=== PATIENT | male | born 1940 | race Caucasian/White ===

== ENCOUNTER 2023-12-29 07:11 | Day surgery (SDC) | payer OTHER, SELFPAY ==
[2023-12-29] VITALS (12 sets, daily range): BP systolic 114–147; BP diastolic 68–80; BMI 32.1
[2023-12-29 07:55] LABS: Glucose - Point of Care 120 mg/dl (70-99)
[2023-12-29] MEDS: LOW STRENGTH ASPIRIN 81 MG PO (08:05)
--- NOTE | 2023-12-29 09:48 | ITS.CL.CATH ---
Machine I Engraver - Catheterization
Cardiac Catheterization
Procedure Report:
CARDIAC CATHETERIZATION REPORT
Date of Procedure: 12/29/2023
Referring: Fred Davenport MD
Indication: Symptomatic critical aortic stenosis
�
HEMODYNAMIC DATA
AO: 125/77
LV: Not done
�
LEFT VENTRICULOGRAPHY: Not done
�
CORONARY ANGIOGRAPHY
Dominance: Right
Left Main: Normal
LAD: 60-70% mid to distal LAD stenosis with otherwise mild luminal irregularities
Circumflex: Mild luminal irregularities
RCA: 30-40% stenosis in the distal RPDA otherwise mild luminal irregularities in a dominant RCA system
�
Closure Device: None-the procedure was performed via the right radial artery. The Abel's test was normal prior to the procedure.
�
Radiation (mGy): 358
DAP (cm2.Gy): 31
Fluoroscopy time: 2.5 minutes
�
CONCLUSIONS
1:�Symptomatic critical aortic stenosis noninvasively evaluated
2:�Single-vessel CAD as described-patient does not experience angina and based on ACTIVATION trial results, would not revascularize prior to TAVR. If he develops angina in the future, PCI of the LAD lesion would be a slam dunk. Continue ASA 81mg
daily intermediate and rosuvastatin to drive LDL below 70.
3. Continue evaluation for TAVR
�
�
Copy to: MD Danyel Gray MD
�
Aron Alcocer MD, [facility], [facility]
--- NOTE | 2023-12-29 11:36 | CONSULT.STRU ---
Consultation
-
Date/Time Consultation Requested: 12/29/2023
Date/Time Consultation Performed:
Requesting Provider: Dr. Aron Alcocer
Performing Provider: GENIE Magaña
Reason for Consultation: Aortic Stenosis/ TAVR evaluation
Patient History
Physicians
Family Physician: Danyel Aguirre
Outpatient Vice President Digital Strategist: Fred Davenport
Primary Vice President Digital Strategist: Fred Davenport
History of Present Illness
Patient is a very pleasant 83yo male who over the past year has noticed increasing fatigue and WAGNER. He had adjusted his activities and lifestyle thinking he was just 'getting old'. He denies chest pain, palpitations, PND, orthopnea or edema. He
follows with Dr. Fred Davenport and had an echocardiogram on 12/13/2023 that was notable for EF: 65-70%, Mild LVH, Grade 2 diastolic dysfunction, AV with PG/M/70, PHYLLIS: 0.8, Trace MT, Trivial TR. He underwent cardiac cath today that showed 60-70%
mid to distal LAD stenosis and 30-40% stenosis of the distal RPDA. He denies any anginal symptoms.
Reviewed the pathophysiology of aortic stenosis with the patient and his . Explained the treatment options of SAVR and TAVR. Explained the TAVR evaluation process including follow up BMP, CT TAVR scan, CT surgery consult and Heart Team
discussion. Provided with script for BMP next week, script and appointment for CT TAVR, Consult appointment with Dr. Martinez and a copy of the TAVR education booklet with contact information. Allowed for and answered questions.
Past Medical History
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
Past Surgical History
Past Surgical History: Orthopedic (bilateral TKR, R-THR) and Urological (TURP 2020)
Dental History
DIANN Perry
Family History
Mother: at Age
Father: at Age
Family Medical History: Cancer
Social History
Alcohol: Occasional
Drug: None
Tobacco: Former Smoker
Personal:
Living: With Spouse
Allergies
Allergy/AdvReac Type Severity Reaction Status Date / Time
No Known Allergies Allergy Verified 12/29/23 08:00
Home Medications
�Medication �Instructions �Recorded �Confirmed �Type
aspirin 81 mg chewable tablet 81 mg PO DAILY #1 tab 12/29/23 Rx
glipizide 5 mg tablet 5 mg PO DAILY 12/29/23 12/29/23 History
rosuvastatin 20 mg tablet 20 mg PO DAILY 12/29/23 12/29/23 History
tadalafil 5 mg tablet (Cialis) 5 mg PO DAILY 12/29/23 12/29/23 History
STS%
STS %: 1.44%
Review of Systems
-
History Source: Patient and Family
General: Reports Fatigue; Denies Weight Gain or Weight Loss
HEENT: Reports No Symptoms
Respiratory: Reports WAGNER (progressive over the past year); Denies Asthma or PND
Cardiac: Denies Chest Pain, Known Vascular Disease, Palpitations, Nausea or Edema
Abdomen/GI: Denies Abdominal Pain, Reflux, Nausea or Vomiting
: Reports Frequency and Nocturia; Denies Urgency or Hematuria
Musculoskeletal: Reports No Symptoms
Skin: Reports Other (easy bruising)
Neurological: Reports Dizzy; Denies CVA, TIA or Headaches
Vascular: Reports No Symptoms
Physical Exam
Vital Signs
Temp 97.9 F 12/29/23 07:39
Temp route: Oral 12/29/23 07:20
Pulse 57 12/29/23 11:05
Resp Rate 19 12/29/23 09:56
Blood pressure 119/68 12/29/23 11:05
Blood pressure extremity used: Left upper arm 12/29/23 11:11
Position: Sitting 12/29/23 11:11
MAP (cuff-Giacomo Monitor) 85 12/29/23 11:05
SaO2 93 12/29/23 11:05
Oxygen Mode of Delivery Room air 12/29/23 11:11
Can the patient verbally communicate their pain? Yes 12/29/23 11:11
Actual Weight 104.3 kg 12/29/23 07:30
Body Mass Index (BMI) 32.1 12/29/23 07:30
Labs
12/26/2023:
H/H: 14.1/42.1
Platelets: [id number]
WBC: 8.5
BUN/Creat: 16/0.91
GFR: 84
Diagnostic Studies
Echocardiogram 12/13/2023:
CONCLUSIONS
1. Left atrial enlargement
2. Mild left ventricular hypertrophy.
3. Severe aortic stenosis.
4. Normal left and right ventricular systolic function.
5. Grade 2 diastolic dysfunction.
6. Normal right ventricular systolic pressure
Indications:
Nonrheumatic aortic (valve) stenosis
Rhythm: Sinus
Portable Study:
Technical Quality: Technically difficult but
adequate for interpretation
Contrast: None
BP: 120 / 80
PROCEDURE
A complete Transthoracic Echocardiogram was performed utilizing two-dimensional
evaluation with color flow and spectral Doppler analysis.
FINDINGS
Left Ventricle
Normal left ventricular chamber size. Mild concentric left ventricular
hypertrophy. Normal left ventricular wall motion and systolic function. The
estimated left ventricular ejection fraction is 65 to 70%. Mitral inflow and
tissue Doppler are suggestive of a grade 2 diastolic filling abnormality.
Right Ventricle
Normal right ventricular chamber size. Normal right ventricular systolic
function.
Left Atrium
Mild left atrial enlargement.
Right Atrium
Normal right atrial size
Mitral Valve
Normal mitral valve. Trivial mitral regurgitation.
Aortic Valve
Thickened/calcified and deformed aortic valve that exhibits decreased opening.
There is a peak aortic valve gradient of 100 mmHg the mean gradient of 70 mmHg.
Aortic valve area is calculated at 0.8 cm2. The dimensionaless velocity index
is 0.2. These findings are suggestive of severe stenosis.
Tricuspid Valve
Normal tricuspid valve. Trivial tricuspid regurgitation with right ventricular
systolic pressure estimated at 23 mmHg
Pulmonic Valve
The pulmonic valve is poorly visualized. There is no obvious pulm efficiency.
Pericardium\\Pleura
No significant pericardial effusion.
Aorta
Normal aortic root.
Other Finding
Grossly intact interatrial septum.
Normal size inferior vena cava that exhibits normal respiratory variation. The
right atrial pressure is estimated at 3 mmHg.
MEASUREMENTS (Male / Female) Normal Values
2D ECHO
LV Diastolic Diameter PLAX 4.9 cm 4.2 - 5.9 / 3.9 - 5.3 cm
LV Systolic Diameter PLAX 3.1 cm
IVS Diastolic Thickness 1.0 cm 0.6 - 1.0 / 0.6 - 0.9 cm
LVPW Diastolic Thickness 1.0 cm 0.6 - 1.0 / 0.6 - 0.9 cm
LV Relative Wall Thickness 0.4
RV Internal Dim ED PLAX 3.0 cm
LVOT Diameter 2.0 cm
M-MODE
Aortic Root Diameter MM 3.2 cm
LA Systolic Diameter MM 3.8 cm
LA Ao Ratio MM 1.2
DOPPLER
AV Peak Velocity 498.8 cm/s
AV Peak Gradient 99.5 mmHg
AV Mean Gradient 70.2 mmHg
AV Velocity Time Integral 136.0 cm
LVOT Peak Velocity 121.8 cm/s
LVOT Peak Gradient 5.9 mmHg
LVOT Velocity Time Integral 27.1 cm
LVOT Stroke Volume 88.1 cm3
LVOT Stroke Volume Index 37.4 ml/m2 empty
LVOT Cardiac Index 1908.8 cm3/min
AV Area Cont Eq vti 0.6 cm2
AV Area Cont Eq pk 0.8 cm2
Mitral E Point Velocity 82.5 cm/s
Mitral A Point Velocity 89.0 cm/s
Mitral E to A Ratio 0.9
TR Peak Velocity 222.4 cm/s
TR Peak Gradient 19.8 mmHg
Right Ventricular Systolic Press 22.8 mmHg
Cardiac Catheterization 12/29/2023:
HEMODYNAMIC DATA
AO: 125/77
LV: Not done
�
LEFT VENTRICULOGRAPHY: Not done
�
CORONARY ANGIOGRAPHY
Dominance: Right
Left Main: Normal
LAD: 60-70% mid to distal LAD stenosis with otherwise mild luminal irregularities
Circumflex: Mild luminal irregularities
RCA: 30-40% stenosis in the distal RPDA otherwise mild luminal irregularities in a dominant RCA system
�
Closure Device: None-the procedure was performed via the right radial artery. The Abel's test was normal prior to the procedure.
�
Radiation (mGy): 358
DAP (cm2.Gy): 31
Fluoroscopy time: 2.5 minutes
�
CONCLUSIONS
1:�Symptomatic critical aortic stenosis noninvasively evaluated
2:�Single-vessel CAD as described-patient does not experience angina and based on ACTIVATION trial results, would not revascularize prior to TAVR. If he develops angina in the future, PCI of the LAD lesion would be a slam dunk. Continue ASA 81mg
daily [facility] and rosuvastatin to drive LDL below 70.
3. Continue evaluation for TAVR
Exam
General: Well Developed, Well Nourished, No Apparent Distress and Comfortable
HEENT: Normocephalic, Atraumatic, PERRLA and EOMI
Neck: Trachea Midline
Respiratory: Clear; Negative Wheezes, Crackles or Rhonchi
Cardiac: S1/S2, Regular Rhythm and Murmur (Grade II/ systolic murmur)
GI: Soft, Non Tender, Non Distended and Normal Bowel Sounds
Rectal: Deferred by Provider
Skin: Warm and Dry
Neuro: Awake, AO x 3 and No Motor Deficits
Extremities: Pulses (+2 DP pulses bilarteally); Negative Lower Level Edema
Psych: Calm
Assessment / Plan
-
Procedure Type:�Isolated AVR
PERIOPERATIVE OUTCOME ESTIMATE %
Operative Mortality 1.44%
Morbidity & Mortality 6.06%
Stroke 1.26%
Renal Failure 0.99%
Reoperation 2.73%
Prolonged Ventilation 2.84%
Deep Sternal Wound Infection 0.055%
Long Hospital Stay (>14 days) 3.19%
Short Hospital Stay (<6 days)* 51.8%
Severe Aortic stenosis:
����������� Continue evaluation for TAVR as outpatient
����������� BMP next week ([facility])
����������� CT TAVR scan 01/09/2024 at 0900 at
����������� CT surgery consult with Dr. Martinez 01/09/2024 at 10:00am
����������� Heart team discussion at [facility]
����������� Dental Clearance- receives regular dental care
Data Reviewed
-
EKG: Report Reviewed by me (first degree AV block, L-anterior fascicular block, right BBB)
Manager Study: Report Reviewed by me and Discussed with Physician
Echo: Report Reviewed by me and Discussed with Physician
Labs: Labs Reviewed by me
Old Records: Reviewed (cardiology notes)
Total Time Spent with Patient (in minutes): 30
== END 2023-12-29 12:19 | disposition home or self-care (01) ==
LOC: CATH 07:11
PROVIDERS: ATTENDING PHYSICIAN Internal Medicine Cardiovascular Disease; FAMILY PHYSICIAN Family Medicine; OTHER PHYSICIAN Internal Medicine Cardiovascular Disease
DX: I35.0 Nonrheumatic aortic (valve) stenosis (principal); I25.10 Atherosclerotic heart disease of native coronary artery without angina pectoris; E78.49 Other hyperlipidemia; E11.9 Type 2 diabetes mellitus without complications; Z85.51 Personal history of malignant neoplasm of bladder; Z87.891 Personal history of nicotine dependence; Z79.82 Long term (current) use of aspirin; Z79.84 Long term (current) use of oral hypoglycemic drugs
CPT/HCPCS: 82962; 93454; C1894; Q9967

== ENCOUNTER → 2024-01-09 08:57 | Outpatient (REF) | payer OTHER, SELFPAY | LOC: RAD 08:57 | PROVIDERS: ATTENDING PHYSICIAN Nurse Practitioner Adult Health; FAMILY PHYSICIAN Family Medicine | DX: I35.0 Nonrheumatic aortic (valve) stenosis (principal) | CPT/HCPCS: 74174; 75572; Q9967 ==

== ENCOUNTER 2024-02-01 05:29 | Inpatient (IN) | payer OTHER, SELFPAY ==
[2024-01-25 12:25] VITALS: BMI 31.9
[2024-01-25 13:14] LABS: % Basophils 0.2 % (0-2); % Eosinophils 0.1 % (0-6); % Immature Granulocytes 0.4 % (0-0.5); % Lymphocytes 11.8 % (20.5-51.1); % Monocytes 8.6 % (1.7-9.3); % Neutrophils 78.9 % (42.2-75.2); Absolute Immature Granulocytes 0.1 10^3/uL (0-0.05); Absolute Lymphocytes 1.9 10^3/uL (1.2-3.4); Absolute Monocytes 1.3 10^3/uL (0.1-0.6); Absolute Neutrophils 12.3 10^3/uL (1.4-6.5); Hematocrit 39.5 % (39.0-52.0); Hemoglobin 13.1 g/dL (13.0-18.0); Mean Corp Hgb Conc. 33.2 g/dL (33.0-37.0); Mean Corpuscular Volume 90.4 fL (80.0-94.0); Mean Platelet Volume 9.9 fL (7.4-10.4); Nucleated Red Blood Cells % 0 % (-); Platelet Count 217 10^3/uL (130-400); Red Blood Cell Count 4.37 10^6/uL (4.70-6.10); Red Cell Dist. Width 12.2 % (11.5-14.5); White Blood Cell Count 15.6 10^3/uL (4.8-10.8)
[2024-01-25 13:23] LABS: ALT (SGPT) 13 U/L (0-50); AST (SGOT) 22 U/L (17-59); Albumin 4.3 g/dl (3.5-5.0); Alkaline Phosphatase 50 U/L (38-126); Blood Urea Nitrogen 19 mg/dl (9-20); Calcium 9.2 mg/dl (8.4-10.2); Carbon Dioxide 26 mmol/L (22-30); Chloride 100 mmol/L (98-107); Direct Bilirubin 0.2 mg/dl (0.0-0.4); Estimated Creatinine Clearance 90 ml/min; Glucose 140 mg/dl (70-99); Potassium 4.2 mmol/L (3.5-5.1); Sodium 135 mmol/L (135-145); Total Bilirubin 0.7 mg/dl (0.2-1.3); Total Protein 7.1 g/dl (6.3-8.2); eGFR > 60.00
[2024-01-25 13:32] LABS: NT-proBNP 416 pg/ml
[2024-01-25 13:36] LABS: APTT 27.8 Sec (23.4-35.0); PT 14.7 Sec (11.4-14.6)
--- NOTE | 2024-01-25 13:42 | CM ---
Chart reviewed. Met with the patient and his in PAT. Reviewed preoperative and postoperative instructions and restrictions, along with showering guidelines. Gave patient 2 soaps. Patient is agreeable to a home visit by CT Transitional RN.
Patient is independent of ADLS, lives with his in a 2 SH, 1 DARYL, 0 DME. Plan is for the patient to go home with CT Transitional RN. CM to follow
[2024-01-25 14:11] LABS: Glycohemoglobin (HgbA1c) 6.4 % (4.0-5.6)
[2024-01-25 14:34] LABS: Urine Albumin Negative (Neg - Trace); Urine Bilirubin Negative (Negative); Urine Character Clear (Clear); Urine Color Yellow; Urine Glucose Trace (Negative); Urine Ketone Negative (Negative); Urine Leukocyte Negative (Negative); Urine Nitrite Negative (Negative); Urine Occult Blood Negative (Negative); Urine Urobilinogen Negative (Neg - 1+)
[2024-02-01] VITALS (32 sets, daily range): BP systolic 95–143; BP diastolic 58–81; BMI 29.0
--- NOTE | 2024-02-01 05:52 | W.CVOR.SURPR ---
CVOR Surgeon Immed Pre Op
-
I have examined this patient prior to performance of the scheduled procedure.
The patient's condition is unchanged from the time of the dictated/written History and
Physical and the patient is able to undergo the scheduled procedure.
TF TAVR
[2024-02-01] MEDS: ANCEF 10 IV ×2 (06:00→07:00)
--- NOTE | 2024-02-01 06:07 | PTCARENOTE ---
Pt. arrived to IVU at 0530. Pt. AOx3. Tele reading NSR. VS WNL. TAVR prep completed. Plan of care explained to pt. Pt. verbalizes understanding. Call sanford within reach. Continuing to monitor at this time.
[2024-02-01 06:47] LABS: Glucose - Point of Care 122 mg/dl (70-99)
--- NOTE | 2024-02-01 08:26 | CM ---
Reviewed chart. Mr. Reyes is in the operating room today. Prior to admission he resides with his spouse in a two story home without any steps to enter. Prior to admission he was independent with ambulation and adls. He caruso not have any DME in the
home. Medical work-up in progress. The discharge plan is to return home with his spouse and a home visit by the Transitional Care Nurse when medically stable.
[2024-02-01 08:41] LABS: ACT-LR - POC 131 Seconds (116-155)
[2024-02-01 08:57] LABS: ACT-LR - POC 282 Seconds (116-155)
--- NOTE | 2024-02-01 09:25 | ITS.CL.TAVR ---
Cement Gun Operator - TAVR Report
TAVR PRocedure
Procedure Report:
TRANSCATHETER AORTIC VALVE REPLACEMENT REPORT
Date of Procedure: 02/01/24
Referring: Dr. Fred Davenport MD
Indication: Severe aortic stenosis
Operators: Helio Meade MD, PhD (interventional cardiology); Kavon Sheppard MD (CT surgery)
Anesthesia: conscious sedation provided by the anesthesia staff
PROCEDURE: transfemoral, transcatheter aortic valve replacement with a Bliss Efren 3 Ultra #26 valve
ACCESS:
1. 6F left femoral vein (closure: manual hemostasis)
2. 6F left common femoral artery (closure: Angioseal)
3. 14F right common femoral artery (closure: Perclose x2)
PROCEDURE NARRATIVE:
The patient was prepped and draped in standard sterile fashion. Conscious sedation was provided by the anesthesia staff. 6F left femoral vein and left common femoral artery access was obtained with ultrasound guidance using micropuncture technique
with verification of appropriate arteriotomy location via hand injection angiography. There was difficulty getting the TVP to cross into the RA, so a Armstrong wire was used to gain access to the PA over which a 70 cm 6F sheath was used to gain
position in the RV, followed placement of the TVP. Appropriate capture was verified. A 5F pigtail catheter was advanced via the left common femoral artery and seated in the right coronary cusp. Angiography was performed to verify the co-planar
angle.
8F right common femoral artery access was obtained with ultrasound guidance using micropuncture technique with verification of appropriate arteriotomy location via hand injection angiography. The arteriotomy was preclosed with two Perclose sutures
followed by replacement of the 8F sheath. Using an AL1 catheter, an Amplatz Superstiff wire was placed in the descending thoracic aorta. The 8F sheath was removed and the 14F Bliss E-sheath was inserted over the Superstiff wire and into the
descending aorta. Heparin 8500 units was given. The AL1 catheter was re-advanced through the E-sheath to the level of the ascending aorta. The Superstiff wire was exchanged for a soft tipped straight wire. There was significant difficulty crossing
the aortic valve, with AL-1, AL-2, JR4, and AR-2 catheters used with both the straight wire and Glidewire without success. Further attempts with the AL-1 and straight wire eventually proved successful, and the AL1 was deposited in the LV apex. A
J-wire was used to exchange the AL1 for a pigtail catheter in the LV and LVEDP was measured. An Amplatz Extrastiff wire with curved proximal end was advanced through the pigtail catheter and seated in the LV apex. ACT was checked and confirmed to be
>250 seconds.
The valve was brought to the table with orientation and deployment contrast volume verified. The valve was advanced over the Extrastiff wire and into the descending aorta. The balloon was withdrawn, and the valve was mounted on the balloon. The
valve was advanced over the aortic arch and into the aortic valve annulus. The pusher device was withdrawn. Low volume aortography confirmed valve positioning. The valve was deployed during rapid ventricular pacing. The balloon was walked back to
the descending aorta while leaving the wire in place. The patient was resuscitated by anesthesia with recovery of adequate blood pressure. Telemetry demonstrating sinus rhythm with first-degree AV block. Aortography demonstrated good valve
positioning, adequate coronary filling, and no aortic valve insufficiency. Echocardiography confirmed no aortic insufficiency. Mean valve gradient was 9 mmHg. The valve deployment system was removed.
The Bliss E sheath was removed, and hemostasis obtained with the two Perclose sutures. Protamine 40 units was given. Aortoiliac angiography demonstrated no evidence of iliofemoral dissection/perforation and good runoff below the common femoral
artery bilaterally. The pacemaker and the pigtail catheter were removed. The left femoral artery sheath was removed using a 6F Angioseal. The left femoral venous sheath was removed with manual pressure.
RADIATION: dose 2049 mGy; DAP 180 Gy*cm2; fluoroscopy time 44.1 min
CONCLUSION: successful placement of Bliss Efren 3 Ultra 26 mm valve via right transfemoral approach with no acute complications
Copy to: Dr. Fred Davenport MD (dial equipment engineer); Dr. Danyel Zambrano DO (PCP)
Signed: Helio Meade MD, PhD
--- NOTE | 2024-02-01 09:41 | W.PN.CT.SURG ---
CT Surgery Operative Note
-
OPERATIVE REPORT
Preoperative Diagnosis: Severe aortic valve stenosis, symptomatic
Postoperative Diagnosis: Same
Procedure(s) Performed: Right trans femoral TAVR with a 26mm Prater TAVR valve
Date of Procedure: 02/01/24
Comorbidities:
1. Severe aortic stenosis, symptomatic
Cardiac Surgeon: Kavon Sheppard MD, MS
Security Guard Supervisor: Nishant Meade MD
Anesthesia: Conscious Sedation and Local Analgesia
EBL: 100cc
Products: none
Implant: 26mm PRATER Efren Valve, SN: [id number]
Indication(s) for Procedures: 83-year-old male with symptomatic severe aortic stenosis. CT-TAVR protocol revealed acceptable anatomy for TAVR access and implantation.
Start time: 0740hrs
Deployment time: 0902hrs
End time: 0922hrs
Radiation Dose (mGy): 2049.95
DAP (cm2.Gy): 180.21
Fluoroscopy time (minutes): 44.1
Contrast volume (ml): 85
TAVR gradient (mmHg): 9-10mmHg
Heparin Dose: 17,000units
Protamine Dose: 40mg
Final Valve Positionin/10
Findings: Preoperative LVEF was 65% and was 65-70% following TAVR without inotropic support. Function was overall normal without regional wall motion abnormalities or dyskinesia. The aortic valve was well seated without detectable PVL and mean
gradient across the new valve was 9-10mmHg. Following deployment, he did not require pacing and returned to sinus while on the lab engineer table. There was successful placement of 26mm nominal TAVR valve without acute complications. Of note, we had a
difficulty time crossing his valve, and took several catheters and different wires to accomplish this. Otherwise, no significant complications.
Access:
1. Device - R OFFICE SUPERVISOR, perclose x 2
2. Pigtail - L OFFICE SUPERVISOR + Angioseal, 6Fr
3. Transvenous Pacer - L CFV, via long sheath to deposite pacing wire in RA to RV
Description of Procedure: The patient was taken to the lab engineer. Their identity and procedure to be performed were verified and they were positioned supine on the lab engineer table. Induction via conscious sedation. The patient was then prepped and
draped from chin to thigh in a sterile fashion. A preoperative time-out was performed with all members of the team present. Arterial and venous access was performed using fluoroscopy and ultrasound guidance with micropuncture and Seldinger
technique. Two perclose devices were used on the device side followed by access to the aorta with a stiff wire to facilitate E-sheath placement. Heparin was given. A stiff straight wire and AL-1 catheter was used to cross the aortic valve. This
took several attempts with multiple exchanges of wires and catheters. The stiff wire was exchanged for an extra stiff coiled tip wire. The valve was prepped and mounted on to the device carrier. An ACT of >250 was achieved. We verified x 3 that the
valve was mounted in the correct orientation with the skirt of the valve directed toward the tip of the device carrier. We advanced the device into the descending thoracic aorta where the valve was them mounted onto the balloon under fluoroscopy.
The device was flexed and advanced over the arch into the root and positioned across the aortic valve. Contrast fluoroscopy was used to visualize the prosthesis across the valve and to guide positioning. A pigtail catheter in the RCC as used as a
guide. We aimed to have the bottom of the device marker at the annular hinge point. The device sheath was pulled back. We performed a quick pre-deployment time out. The pacer was turned on and had capture. Blood pressure fell accordingly,
angiography was done to verify the intended final placement and the valve was deployed with 5 seconds of rapid pacing to nominal volume. The balloon was deflated and the pacer was turned off. We had recovery of vitals. The device carrier was
unflexed and positioned back in the descending thoracic aorta. A transthoracic echocardiogram was performed. The device was removed from the E-Sheath maintaining wire access followed by removal of the E-sheath as we cinched down the perclose
devices. There was acceptable hemostasis. The pigtail was withdrawn into the descending/abdominal and completion aortogram with runoff run-off angiography was performed. There was no stenosis or dissection of bilateral iliofemoral systems. There was
acceptable hemostasis of bilateral groins and manual pressure was held following wire removal. Low dose protamine was administered after checking another ACT.
All instrument, sponge, and needle counts were confirmed to be correct x 2 at the end of the operation. The patient was transferred to the cardiac intensive care unit in stable condition.
I, Dr. Kavon Sheppard, was present, scrubbed for, and performed all critical elements of this procedure.
Kavon Sheppard MD
Cardiothoracic Surgeon
[facility]
This operative dictation was created using the [employer] dictation system. Please excuse any grammatical, typographical, or 'sound alike' errors
--- NOTE | 2024-02-01 09:48 | W.PN.UPDATE ---
Update Note
Progress Note Update
Reviewed Mr. Reyes with the heart team in the preTAVR SDM meeting and confirmed a 26 mm S3 via right transfemoral access. Patient will resume aspirin post TAVR. #26mm S3 (serial# [id number]) successfully deployed via right TF access. Post implant MG
10mmHg.
[2024-02-01] MEDS: LEVOPHED 250 IV (09:51)
[2024-02-01 10:28] LABS: Glucose - Point of Care 145 mg/dl (70-99)
--- NOTE | 2024-02-01 11:00 | PTCARENOTE ---
PT arrived to from TAVR procedure IVU 2x groins CDI no hematoma present soft non tender, Neuro exam benign, oriented x4 with no complaints of pain. post Op vitals and neuro checks WNL. see worklist for detailed assessment
--- NOTE | 2024-02-01 11:05 | ITS.CL.PN ---
Svp Monetization - Procedure Note
Procedure
Procedure Note:
CARDIAC CATHETERIZATION REPORT
Date of Procedure: 02/01/24
Referring: Dr. Dick Strong DO
Indication: Complete revascularization of non-culprit RCA stenosis following LCx STEMI
PROCEDURE(S)
1. left heart catheterization
2. PCI to the proximal RCA
3. IVUS of RCA
ACCESS: 6F right radial artery (closure: radial band)
CATHETER: 6F JR4 guide
HEMODYNAMIC DATA
LV 116/18 (EDP 20, A-wave 32) mmHg
AO 130/85 (mean 68) mmHg
PCI of RCA
Heparin was administered to achieve ACT greater than 300 seconds. The RCA was engaged with a 6 [place] JR4 guide catheter and a Runthrough wire placed in a proximal marginal branch for support followed by second Runthrough wire placed in the distal
RPDA. Initial lesion preparation was performed with a 2.0x12 balloon inflated serially to 10 mmHg with full expansion. A 6F Guideliner was inserted, facilitating delivery of a 3.0x22 mm [place] EMMETT that was deployed at 14 gail. There was a mild
waist in the mid stent. Postdilation was performed with a 3.0x12 mm NC balloon taken to 18 GAIL with resolution of the waist. IVUS was performed and demonstrated that the stent was mildly undersized with minimal calcification. Postdilation was
performed with a 3.5x12 mm NC balloon taken to 12 mmHg at the stent edges and 18 mmHg in the mid stent at the waist with full expansion. Final IVUS demonstrated excellent stent expansion apposition and no edge dissection. The midportion of the stent
where the waist had been demonstrated mild relative stent underexpansion but adequate MLA and stent diameter over 3 mm. The wire and guide were removed and a TR band placed. The patient was continued on aspirin and ticagrelor.
RADIATION: dose 747 mGy; DAP 44.9 Gy*cm2; fluoroscopy time 15.2 min
CONCLUSIONS
1. Successful IVUS-guided PCI to the proximal right coronary artery with placement of a 3.0x22 mm [place] EMMETT post-dilated to high-pressure with a 3.5 mm NC balloon
2. Postprocedure left heart cath demonstrated mildly elevated LV filling pressure and no significant gradient across the aortic valve
RECOMMENDATIONS
1. expectant management after cardiac catheterization via right radial approach
2. aggressive secondary prevention of coronary artery disease
3. DAPT with aspirin and ticagrelor for 1 year
Copy to: Dr. Billy Whitaker MD (PCP)
Signed: Helio Meade MD, PhD
[2024-02-01 12:02] LABS: ACT-LR - POC > 397 Seconds (116-155)
[2024-02-01] MEDS: TYLENOL 650 MG PO (15:06)
[2024-02-01] MEDS: LOW STRENGTH ASPIRIN 81 MG PO (15:06)
[2024-02-01] MEDS: ANCEF 5 IV (15:06)
--- NOTE | 2024-02-01 15:45 | PTCARENOTE ---
PT OOB to chair, vss bilateral groins WNL. see worklist for detailed assessment
--- NOTE | 2024-02-01 17:58 | PTCARENOTE ---
PT OOB indipendent in room, DC 02/01, see worklist for detailed assessment
--- NOTE | 2024-02-01 20:40 | PTCARENOTE ---
Received patient at change of shift. Resting in bed, but awoke to sound-- oriented x3. BP 115/67, SB w/ 1st degree block, BBB 50s, 97% on room air. Right groin little oozing from previous shift-- marked and stable. Little ecchymosis, but soft and no
hematoma. Left groin site clean, dry, and intact. Little ecchymosis, soft, no hematoma. Patient has begun ambulating and urinating on own. Discussed plan of care. Patient verbalized understanding. Call [facility] within reach.
[2024-02-01] MEDS: MAGNESIUM OXIDE 500 MG PO (21:13)
[2024-02-01] MEDS: DILAUDID 0.25 MG IV (23:19)
--- NOTE | 2024-02-01 23:43 | PTCARENOTE ---
Addendum entered by Anisha Zamora RN 02/02/24 04:58:
When getting morning vitals, patient informed RN the headache was completely gone
Addendum entered by Anisha Zamora RN 02/02/24 04:57:
Checked in with patient around 0100. Patient stated headache is there, but just slightly. 03/18
Addendum entered by Anisha Zamora RN 02/01/24 23:57:
Tali Jacob evaluated patient. Patient agreed to notify care team with any changes. Stated pain ~ 05/16 now.
Original Note:
Patient c/o of headache 10/16. Neuro check and vitals stable. Gave ice pack and Dilaudid for pain-- see MAR. 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
[2024-02-02] VITALS (7 sets, daily range): BP systolic 115–139; BP diastolic 57–76; PULSE 58; O2SAT 94–98; BMI 29.1
[2024-02-02 04:54] LABS: Hematocrit 38.9 % (39.0-52.0); Hemoglobin 12.7 g/dL (13.0-18.0); Mean Corp Hgb Conc. 32.6 g/dL (33.0-37.0); Mean Corpuscular Hgb 29.7 pg (27.0-31.0); Mean Corpuscular Volume 90.9 fL (80.0-94.0); Mean Platelet Volume 9.7 fL (7.4-10.4); Platelet Count 173 10^3/uL (130-400); Red Blood Cell Count 4.28 10^6/uL (4.70-6.10); Red Cell Dist. Width 12.5 % (11.5-14.5); White Blood Cell Count 10.9 10^3/uL (4.8-10.8)
[2024-02-02 05:16] LABS: Blood Urea Nitrogen 15 mg/dl (9-20); Calcium 8.7 mg/dl (8.4-10.2); Carbon Dioxide 28 mmol/L (22-30); Chloride 100 mmol/L (98-107); Estimated Creatinine Clearance 95 ml/min; Glucose 113 mg/dl (70-99); Potassium 4.3 mmol/L (3.5-5.1); Sodium 135 mmol/L (135-145); eGFR > 60.00
--- NOTE | 2024-02-02 06:39 | W.PN.CT ---
Today's Communication / Plan
-
-pod #1
-last night c/o throbbing CORONADO behind L eye, similar to his usual cluster CORONADO- improved with Dilaudid and ice. No focal deficits. Vision and speech intact, moves all extremities equally. CORONADO resolved.
-nsr 60s overnight. No damion or pauses
-pre-existing RBBB, LAFB, 1st degree AVB. ECG am is at baseline
-Echo today
-current meds (ASA, Crestor, Glucotrol, Mg)
-encourage IS, OOB, ambulate
Assessment / Plan
-
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
- Postop TTE: LVEF was 65% pre and 65-70% post TAVR without inotropic support, no regional wma or dyskinesia. The aortic valve was well seated without detectable PVL and mean gradient across the new valve was 9-10mmHg.
- HLD
- DM II (HgA1c 6.4)
- Cluster CORONADO
- Hx GI bleed 2021, requiring 4 pRBCs
- Ureteral sricture
- Bladder CA, s/p TURP 2020
- Knee and hip replacements
- Former smoker
- Pre-existing RBBB, LAFB, 1st degree AVB
Discussed patient care with: Nursing and Care Team
Subjective
-
Date of Service: February 02, 2024
Objective Data
-
PT 14.7 Sec (11.4-14.6) H 01/25/24 12:38
INR 1.10 01/25/24 12:38
APTT 27.8 Sec (23.4-35.0) 01/25/24 12:38
Vital Signs
Vital Signs
Temp Pulse Resp BP Pulse Ox
97.9 F 59 16 111/58 98
02/01/24 23:23 02/02/24 00:15 02/01/24 23:23 02/01/24 23:19 02/01/24 23:23
CT Intake/Output/Weight
02/01/24 02/01/24 02/02/24
06:59 18:59 06:59
Intake Total 1700 / 1700
Balance 1700 / 1700
SaO2: 98
Physical Exam
-
General: Awake and AOx3
Cardiovascular: Regular rate & rhythm, Murmur (soft / @ rsb) and No Rub
Respiratory: Clear
Incision: Other (groins are cdi, soft, nontender, no hematoma b/l)
Extremities: No Edema
Abdomen: soft, nontender, nondistended, + bowel sounds
Neuro: A&O x4, hard of hearing (wears hearing aids). c/o throbbing CORONADO behind L eye, similar to his usual cluster CORONADO- improved with Dilaudid and ice. No focal deficits. Vision and speech intact, moves all extremities equally.
Data Reviewed
-
Lab Results: Results Reviewed
Medications: Active Meds Reviewed
Chest X-Ray: Report Reviewed and Image Reviewed
ECG: Report Reviewed and Image Reviewed
--- NOTE | 2024-02-02 07:22 | W.DCSUMMARY ---
Documented by User: GENIE Elkins 02/02/24 10:47
Discharge Summary
Discharge Data
Date of Admission: 02/01/24
Date of Discharge: 02/02/24
-
Pending Results: No
Hospital Course
Primary care physician: Danyel Aguirre
Outpatient metallurgical analyst: Fred Davenport
Inpatient consultants: [facility]
Procedures:
1. TAVR
Primary Diagnosis:
1. Severe aortic stenosis
Secondary Diagnoses:
1. HLD
2. DM II (HgA1c 6.4) on oral agents
3. Cluster CORONADO
4. Hx GI bleed 2021, requiring 4 pRBCs
5. Ureteral stricture w/ acute urinary retention
6. Bladder CA, s/p TURP 2020
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
8. Pre-existing RBBB, LAFB, 1st degree AVB
HPI: 83-year-old male was electively admitted on 02/01/2024 for a TAVR
Hospital course: Patient underwent a right transfemoral TAVR #[address] REJI [address] Kavon Sheppard. Postprocedure TTE reported an EF of 60% and AV gradients of 21/10 mmHg, no AI. Patient required Levophed in the PACU which was quickly weaned off.
EKG reported sinus rhythm with first-degree AV block and bifascicular block which is unchanged from prior EKGs. Patient did require straight cath x 1 for 1100 cc of urine. Pre discharge TTE on 02/01 reported....
Home medication changes:
Discharge Plan
-
Patient Disposition: Home (Routine Discharge)
Discharge Diagnosis/Procedures: aortic stenosis/TAVR
Condition: Good
Diet: Diabetic, Carb Controlled
Activity: No strenuous activity
Driving Restrictions: Not until seen by your Dr
Bathing Restrictions: OK to Shower
Activity Restrictions/Additional Instructions:
Please call to make appointments for Phase II Cardiac Rehab:
#1) [facility] (10 min away)
[phone]
#2 [facility] (25 min away)
[phone]
Referrals:
CT Transitional Care Nurse [Outside] - in one to two days
(
The Cardiothoracic Transitional Care Nurse will call you to set up a visit in 1-2 days.)
Danyel Aguirre DO [Family Provider] - in four to six weeks (Please make an appointment in four to six weeks. )
Fred Davenport MD [Active] - 03/04/24 3:40 pm
Prescriptions:
New
acetaminophen 325 mg Tablet
650 mg PO Q4HPRN PRN (Reason: CORONADO, mild pain, or fever >101F) Qty: 0 0RF
Continued
oxycodone 5 mg Tablet
5 mg PO Q6H PRN (Reason: pain)
aspirin 81 mg tablet,chewable
81 mg PO DAILY Qty: 1 0RF
magnesium 250 mg Tablet
500 mg PO HS Qty: 0 0RF
glipizide 5 mg Tablet
5 mg PO DAILY Qty: 0 0RF
rosuvastatin 20 mg Tablet
20 mg PO DAILY Qty: 0 0RF
tadalafil [Cialis] 5 mg Tablet
5 mg PO DAILY Qty: 0 0RF
Discharge Orders:
Discharge Patient (As Directed); Ordered 02/02/24
Ordered By: Rama Lutz
Care Plan Goals
Care Plan Goals:
Problem: Readiness for enhanced knowledge related to diagnosis and treatment plan
Goal: Understand your diagnosis and treatment plan needs, including medications if applicable.
Instructions: Know your diagnosis, underlying causes and treatment plan options, including medications if applicable. Consult with your health care team to learn about your diagnosis and treatment plan, including medications if applicable.
Discharge Date and Time
Print Language: BAHAMIAN

Documented by User: Rama GENIE Lutz 02/02/24 13:07
Discharge Summary
Discharge Data
Date of Admission: 02/01/24
Date of Discharge: 02/02/24
Hospital Course
Primary care physician: Danyel Aguirre
Outpatient metallurgical analyst: Fred Davenport
Inpatient consultants: [facility] Card[facility]
Procedures:
1. TAVR
Primary Diagnosis:
1. Severe aortic stenosis
Secondary Diagnoses:
1. HLD
2. DM II (HgA1c 6.4) on oral agents
3. Cluster CORONADO
4. Hx GI bleed 2021, requiring 4 pRBCs
5. Ureteral stricture w/ acute urinary retention
6. Bladder CA, s/p TURP 2020
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
8. Pre-existing RBBB, LAFB, 1st degree AVB
HPI: 83-year-old male was electively admitted on 02/01/2024 for a TAVR
Hospital course: Patient underwent a right transfemoral TAVR #26 mm REJI [address] Kavon Sheppard. Postprocedure TTE reported an EF of 60% and AV gradients of 21/10 mmHg, no AI. Patient required Levophed in the PACU which was quickly weaned off.
EKG reported sinus rhythm with first-degree AV block and bifascicular block which is unchanged from prior EKGs. Patient did require straight cath x 1 for 1100 cc of urine. Pre discharge TTE on 02/01 reported LVEF is 60-65% and Peak/mean gradients
across the aortic valve are 34/16 mmHg. He was deem stable for discharge home.
Home medication changes:
see below
Discharge Plan
-
Patient Disposition: Home (Routine Discharge)
Discharge Diagnosis/Procedures: aortic stenosis/TAVR
Condition: Good
Diet: Diabetic, Carb Controlled
Activity: No strenuous activity
Driving Restrictions: Not until seen by your Dr
Bathing Restrictions: OK to Shower
Activity Restrictions/Additional Instructions:
Please call to make appointments for Phase II Cardiac Rehab:
#1) [facility] (10 min away)
[phone]
#2 [facility] (25 min away)
[phone]
Referrals:
CT Transitional Care Nurse [Outside] - in one to two days
(
The Cardiothoracic Transitional Care Nurse will call you to set up a visit in 1-2 days.)
Danyel Aguirre DO [Family Provider] - in four to six weeks (Please make an appointment in four to six weeks. )
Fred Davenport MD [Active] - 03/04/24 3:40 pm
Prescriptions:
New
acetaminophen 325 mg Tablet
650 mg PO Q4HPRN PRN (Reason: CORONADO, mild pain, or fever >101F) Qty: 0 0RF
Continued
oxycodone 5 mg Tablet
5 mg PO Q6H PRN (Reason: pain)
aspirin 81 mg tablet,chewable
81 mg PO DAILY Qty: 1 0RF
magnesium 250 mg Tablet
500 mg PO HS Qty: 0 0RF
glipizide 5 mg Tablet
5 mg PO DAILY Qty: 0 0RF
rosuvastatin 20 mg Tablet
20 mg PO DAILY Qty: 0 0RF
tadalafil [Cialis] 5 mg Tablet
5 mg PO DAILY Qty: 0 0RF
Discharge Orders:
Discharge Patient (As Directed); Ordered 02/02/24
Ordered By: Rama Lutz
Care Plan Goals
Care Plan Goals:
Problem: Readiness for enhanced knowledge related to diagnosis and treatment plan
Goal: Understand your diagnosis and treatment plan needs, including medications if applicable.
Instructions: Know your diagnosis, underlying causes and treatment plan options, including medications if applicable. Consult with your health care team to learn about your diagnosis and treatment plan, including medications if applicable.
Discharge Date and Time
Print Language: BAHAMIAN
--- NOTE | 2024-02-02 07:37 | W.PN.ANS.POP ---
Anesthesia Post Operative
- Anesthesia Post Op Note
Vital Signs Stable-See Nursing Note: Yes
Airway Patent: Yes
Adequate Pain Control: Yes
Change in Mental Status: No
Current Postoperative Nausea & Vomiting: No
Anesthesia Complications: No
General Anesthetic Recall: No
Unplanned Admission: No
Post Op Hydration Adequate: Yes
[2024-02-02] MEDS: LOW STRENGTH ASPIRIN 81 MG PO (09:07)
--- NOTE | 2024-02-02 09:16 | CM ---
Reviewed chart. Met with Mr. Reyes to review discharge plans. He states he is feeling well and maybe able to go home soon. He states prior to admission he resides with his spouse and 41 year old daughter in a two stor y home with one step to
enter. He states he has a full flight of steps to get to bedroom/full bathroom. He states he has a stair glide to get to the second floor. He states he has a stair glide and no other DME in the home. He states he has a prescription plan and uses
[facility]. He states his spouse will be home to assist in his care if needed. His daughter does work outside the home but she is home in the evening. We reviewed a home visit by the Transitional Care Nurse. He is agreeable to a home visit.
Medical work-up in progress. The discharge plan is to return home with his spouse and daughter with a home visit by the Transitional Care Nurse when medically stable.
--- NOTE | 2024-02-02 14:14 | W.PN.CD ---
Today's Communication / Plan
-
discharge home
Impression / Plan
-
Mr. Reyes is a 83 year old man with history of severe, symptomatic aortic stenosis, s/p right transfemoral Efren S3 Ultra 02/01/24 (Valarie Meade).
Today he is felling well without any chest pain or shortness of breath ambulating the halls. No bleeding at groin site.
EKG with RBBB, LAFB, 1st degree AVB (unchanged from prior)
Assessment:
- HLD
- DM II (HgA1c 6.4)
- RBBB, LAFB, 1st degree AVB
- severe aortic stenosis s/p TF TAVR
Plan:
- discharge today with standard follow up
- cont. asa/statin
TTE 02/02/24
Normal LV size and function with no regional wall motion abnormalities.
LVEF is 60-65% by visual estimation.
Moderate concentric LVH.
Normal right ventricular size and function.
S/p 26 mm Bliss transcatheter aortic valve replacement. Peak/mean gradients
across the aortic valve are 34/16 mmHg. Mild paravalvular aortic regurgitation.
Estimated pulmonary artery pressure of 23 mmHg. Assuming a right atrial
pressure of 3 mmHg.
Compared to prior from December 13, 2023, now status post 26 mm Bliss TAVR
valve.
Physical Exam
Vital Signs/Labs
Vital Signs
Temp Pulse Resp BP Pulse Ox
36.8 C 61 18 122/69 94
02/02/24 11:24 02/02/24 13:30 02/02/24 11:24 02/02/24 11:25 02/02/24 12:10
02/01/24 02/02/24 02/03/24
06:59 06:59 06:59
Actual Weight 102.5 kg 102.7 kg
02/02/24 04:34
02/02/24 04:34
PT 14.7 Sec (11.4-14.6) H 01/25/24 12:38
INR 1.10 01/25/24 12:38
APTT 27.8 Sec (23.4-35.0) 01/25/24 12:38
01/25/24
12:38
Wzf-F-[id number] Pept 416
Physical Exam
Constitutional: No acute distress
Cardiovascular: Rhythm & rate is regular
Respiratory: Respiratory effort normal
groin sites without hematoma
Data Reviewed
-
Date of Service: February 02, 2024
EKG: Tracing Personally Visualized and interpreted
Echo: Tracing Personally Visualized and interpreted
--- NOTE | 2024-02-02 15:30 | PTCARENOTE ---
Pt walking in halls, denies any discomfort , seen by . Telemetry and IV device removed. Discharge instructions reviewed with pt and his daughter regarding activity and driving restrictions, wound care, medications and their possible side
effects, reporting cares and concerns and follow up appt's. Very good understanding verbalized. Pt escorted out via wheelchair and discharged to home.
== END 2024-02-02 15:34 | disposition home or self-care (01) | DRG 267 ==
LOC: IVU 05:29
PROVIDERS: Nurse Practitioner; Student in an Organized Health Care Education/Training Program; ADMITTING PHYSICIAN Thoracic Surgery (Cardiothoracic Vascular Surgery); ATTENDING PHYSICIAN Thoracic Surgery (Cardiothoracic Vascular Surgery); CONSULT PHYSICIAN Internal Medicine; FAMILY PHYSICIAN Family Medicine; OTHER PHYSICIAN Internal Medicine Cardiovascular Disease
PROC: 02RF38Z Replacement of Aortic Valve with Zooplastic Tissue, Percutaneous Approach (ICD-10-PCS; 2024-02-01)
PROC: B41D1ZZ Fluoroscopy of Aorta and Bilateral Lower Extremity Arteries using Low Osmolar Contrast (ICD-10-PCS; 2024-02-01)
DX: I35.0 Nonrheumatic aortic (valve) stenosis (principal); I45.2 Bifascicular block; E78.5 Hyperlipidemia, unspecified; I44.0 Atrioventricular block, first degree; E11.9 Type 2 diabetes mellitus without complications; Z79.82 Long term (current) use of aspirin; Z79.84 Long term (current) use of oral hypoglycemic drugs; Z79.899 Other long term (current) drug therapy
CPT/HCPCS: 93308; 33361; 36415; 71045; 71046; 80048; 80053; 81003; 82248; 82962; 83036; 83880; 85025; 85027; 85347; 85610; 85730; 86850; 86900; 86901; 87070; 93005; 93306; 93321; 93325; C1760; C1769; C1894; Q9967

== ENCOUNTER → 2024-03-14 09:10 | Outpatient (REF) | payer OTHER, SELFPAY | LOC: RAD 09:10 | PROVIDERS: ATTENDING PHYSICIAN Student in an Organized Health Care Education/Training Program; FAMILY PHYSICIAN Family Medicine | DX: Z95.2 Presence of prosthetic heart valve (principal) | CPT/HCPCS: 75572; Q9967 ==

== ENCOUNTER 2024-03-20 06:45 | Day surgery (SDC) | payer OTHER, SELFPAY | END 2024-03-20 09:32 | disposition home or self-care (01) | LOC: CATH 06:45 | PROVIDERS: ATTENDING PHYSICIAN Internal Medicine; FAMILY PHYSICIAN Family Medicine; OTHER PHYSICIAN Internal Medicine Cardiovascular Disease | DX: I08.3 Combined rheumatic disorders of mitral, aortic and tricuspid valves (principal); Z95.2 Presence of prosthetic heart valve; E78.5 Hyperlipidemia, unspecified; E11.9 Type 2 diabetes mellitus without complications; Z85.51 Personal history of malignant neoplasm of bladder; Z87.891 Personal history of nicotine dependence; Z82.49 Family history of ischemic heart disease and other diseases of the circulatory system; Z79.84 Long term (current) use of oral hypoglycemic drugs | CPT/HCPCS: 93312; 93320; 93325 ==

== ENCOUNTER 2024-12-10 12:40 | Inpatient (IN) | payer OTHER, SELFPAY ==
[2024-12-10] VITALS (11 sets, daily range): BP systolic 101–141; BP diastolic 65–75; BMI 30.3; BMI 29.4
--- NOTE | 2024-12-10 08:08 | ED.GENMED ---
History of Present Illness
<GENIE Gaspar - Last Filed: 12/10/24 12:26>
General
Chief Complaint: Chest Pain
Source: patient
Exam Limitations: none
Time Seen by Provider: 12/10/24 08:07
Nursing documentation reviewed up to this point in time: agreed with
History of Present Illness
History of Present Illness:
Patient is a 83-year-old male with past medical history of aortic stenosis status post TAVR with bovine valve last year on baby aspirin only, diabetes GI bleed bladder cancer status post TURP new placement presents to the ER for evaluation. Patient
woke up this morning and had indigestion in the center of his chest. He reports he walked downstairs felt very sweaty and felt like he needed to move his bowels. He walked to the bathroom apparently while moving his bowels had a syncopal episode
in the bathroom. He woke up on the floor. Patient was given 4 baby aspirin EMS arrived.
Patient denies any indigestion or chest pain presently. He does feel very weak.
Phy Exam
<GENIE Gaspar - Last Filed: 12/10/24 12:26>
General Physical Exam
General Presentation: no apparent distress
General age: appears stated age
General Skin: warm and dry
General Habitus: normal
General Mental: alert
General Hydration: dry mucous membranes
Cardiovascular Exam
Cardiovascular Exam: regular rate/rhythm, no murmur and normal peripheral pulses
Pulmonary Exam
Pulmonary Exam: lungs clear and no respiratory distress
Neurological Exam
Neurological Exam: alert and oriented x3
Musculoskeletal Exam
Musculoskeletal Exam: full ROM
Skin Exam
Skin Exam: normal color and warm/dry
Psychiatric Exam
Psychiatric Exam: normal mood/affect
Scores
<GENIE Gaspar - Last Filed: 12/10/24 12:26>
Heart Score for Chest Pain Patients
STEMI patient?: Not applicable
Course
<GENIE Gaspar - Last Filed: 12/10/24 12:26>
Orders/Labs/Results
Orders:
Orders
12/10/24 08:02
Electrocardiogram (*1) Urgent
Reason for Study: Chest Pain
EKG- Treatment ONCE
12/10/24 08:19
CT Cervical Spine W/o Iv Contr Urgent
Comment:
Reason For Exam: trauma
CT Head W/o Iv Contrast Urgent
Comment:
Reason For Exam: trauma
Cardiac Monitoring- Treatment ONCE
IV Insert/Care/Rem.- Treatment PRN
0.9% Sodium Chloride 1000 ml [Nss] 1,000 ml IV BOLUS
CR Chest - 2 Views Urgent
Comment:
Reason For Exam: syncope/chest pain
12/10/24 08:23
Complete Blood Count/With Diff Urgent
Comprehensive Metabolic Panel Urgent
Troponin I Urgent
12/10/24 10:08
COVID-19 Antigen Urgent
Source: Nasal Swab
Influenza A+B Rapid Molecular Urgent
WILSON Source: Nasal Swab
Specimen Description:
12/10/24 10:46
Oseltamivir Phosphate [Tamiflu] 75 mg PO NOW STA
12/10/24 12:08
Troponin I Urgent
Abnormal Lab Results
12/10/24
08:23
RBC 4.26 L 10^6/uL
(4.70-6.10)
Hgb 12.7 L g/dL
(13.0-18.0)
Hct 38.5 L %
(39.0-52.0)
Absolute Monos (auto) 0.7 H 10^3/uL
(0.1-0.6)
Glucose 153 H mg/dl
(70-99)
12/10/24 08:23
12/10/24 08:23
Vital Signs
Initial and Last Documented VS:
Initial Vital Signs
Pulse Resp BP Pulse Ox
54 14 101/65 99
12/10/24 08:02 12/10/24 08:02 12/10/24 08:02 12/10/24 08:02
Last Documented Vital Signs
Temp Pulse Resp BP Pulse Ox
97.5 F 50 17 126/66 97
12/10/24 08:05 12/10/24 11:00 12/10/24 11:00 12/10/24 11:00 12/10/24 11:00
Animal Health Technician consulted with Physician
Animal Health Technician consulted with physician?: Yes
Name of Physician Consulted: Gopal
<Christiano Herron MD - Last Filed: 12/10/24 08:30>
Orders/Labs/Results
Orders:
Orders
12/10/24 08:02
Electrocardiogram (*1) Urgent
Reason for Study: Chest Pain
EKG- Treatment ONCE
12/10/24 08:19
CT Cervical Spine W/o Iv Contr Urgent
Comment:
Reason For Exam: trauma
CT Head W/o Iv Contrast Urgent
Comment:
Reason For Exam: trauma
Cardiac Monitoring- Treatment ONCE
IV Insert/Care/Rem.- Treatment PRN
0.9% Sodium Chloride 1000 ml [Nss] 1,000 ml IV BOLUS
CR Chest - 2 Views Urgent
Comment:
Reason For Exam: syncope/chest pain
12/10/24 08:23
Complete Blood Count/With Diff Urgent
Comprehensive Metabolic Panel Urgent
Troponin I Urgent
12/10/24 10:08
COVID-19 Antigen Urgent
Source: Nasal Swab
Influenza A+B Rapid Molecular Urgent
WILSON Source: Nasal Swab
Specimen Description:
12/10/24 10:46
Oseltamivir Phosphate [Tamiflu] 75 mg PO NOW STA
12/10/24 12:08
Troponin I Urgent
Abnormal Lab Results
12/10/24
08:23
RBC 4.26 L 10^6/uL
(4.70-6.10)
Hgb 12.7 L g/dL
(13.0-18.0)
Hct 38.5 L %
(39.0-52.0)
Absolute Monos (auto) 0.7 H 10^3/uL
(0.1-0.6)
Glucose 153 H mg/dl
(70-99)
12/10/24 08:23
12/10/24 08:23
Vital Signs
Initial and Last Documented VS:
Initial Vital Signs
Pulse Resp BP Pulse Ox
54 14 101/65 99
12/10/24 08:02 12/10/24 08:02 12/10/24 08:02 12/10/24 08:02
Last Documented Vital Signs
Temp Pulse Resp BP Pulse Ox
97.5 F 50 17 126/66 97
12/10/24 08:05 12/10/24 11:00 12/10/24 11:00 12/10/24 11:00 12/10/24 11:00
<GENIE Gaspar - Last Filed: 12/10/24 12:26>
MDM/Problems Addressed
Differential Diagnosis Includes:
Not limited to syncope ACS dehydration electrolyte abnormality reflux
MDM/Problems Addressed:
As documented patient is an 83-year-old female who had an episode of indigestion today walked down the steps and went to the bathroom and had a syncopal episode. EMS was called. Upon presentation patient felt very weak. He denies any recent fever
chills. Denies any associated chest pain. He was found to be flu positive. Patient was given fluids but continues to feel very weak would recommend admission and fluids. First dose of Tamiflu given here in the ER. CAT scan of head and neck
negative chest x-ray negative.
Chronic conditions affecting care:
TAVR ORIF. Discussed with patient for admission to 83-year-old male with past medical history of had an episode of indigestion diaphoresis and syncope in the bathroom. Patient presented awake and alert on arrival. Positive influenza. despite
fluids pt continues to feels weak . First dose she is of Tamifl ordered.
<GENIE Gaspar - Last Filed: 12/10/24 12:26>
*Radiology
Radiology exam reviewed: radiology read reviewed
*Pulse Oximetry
SaO2: 99
Oxygen Mode of Delivery: Room air
Patient hypoxic: no
*EKG
Interpreted by ED Provider?: Yes
Comparison EKG: no changes
Heart Rate: 52
Rate: bradycardiac
Rhythm: sinus
Ischemia: no ischemia
*Critical Care Note
Total Time (30-74mins, 75-104mins- exclusive of procedures): Not Applicable
ED Attending Note
<GENIE Gaspar - Last Filed: 12/10/24 12:26>
-
Portions of this chart may have been created with voice recognition software.� Occasional wrong word or��sound alike� substitutions may have occurred due to the inherent limitations of voice recognition software.
<Christiano Herron MD - Last Filed: 12/10/24 08:30>
ED Attending Note
Patient seen and examined by attending physician: Yes
ED Attending Note:
I have seen and evaluated the patient with a [id number] encounter. I have spoken to the advance practicer provider and involved in the medical history, the physical exam, medical decision making.
Evaluation and management service: agree unless noted differently below.
Results interpretation: agree unless noted differently below.
Focused HPI: 83-year-old male with history as noted significant for aortic stenosis status post AVR in January 2024 who presents to the emergency department for evaluation after episode of chest pain and syncope. Patient reports that he woke up
this morning and he felt the need to go to the bathroom. He says that he was having some chest discomfort that he initially thought was indigestion. He describes a vague 'burning' sensation substernal. He says he made his way to the bathroom but
became profoundly diaphoretic and very lightheaded requiring to stop and sit in the chair. He says that he felt that he was going to evacuate his stools imminently and made his way onto the toilet and ultimately passed out on the toilet. Says he
woke up on the ground in the bathroom and called out to his for EMS to bring her to the hospital. He states that he had persistent chest discomfort until shortly after EMS arrival. He reports associated nausea with this episode no vomiting.
He says he has some mild neck pain after the fall but no other serious injuries. He denies any other acute complaints. 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 Brush through [facility] but seen by Dr. Meade/Valarie for his AVR last year.
Physical exam: Awake and alert no distress. Vital signs all within acceptable range. No appreciable cardiac murmurs. Lungs sound clear. He has no signs of trauma to the head, no tenderness to the midline cervical spine, no tenderness of the
thoracic or lumbar spine or in the ribs. Abdomen nontender. Extremities atraumatic.
Medical Decision Makin-year-old male with history as noted presents for evaluation after episode of chest discomfort and syncopal episode. Currently chest pain-free. Vitals and exam are as above. EKG shows sinus rhythm. Plan to check labs
including a CBC and CMP, troponins. Check CT head and neck after fall off toilet with some mild neck pain. Will monitor closely on telemetry plan likely for admission for observation after this episode and cardiology consultation.
Discharge Plan
Departure
Patient Disposition: Admit
Date of Disposition: 12/10/24
Time of Disposition: 10:53
Admit to: Telemetry
Admit to doctor: hospitalist
Presentation/result/management discussed w/ accepting MD/DO: Hospitalist
Patient with high blood pressure during this ER visit?: No
Condition: Fair
Covid-19: Not Applicable
Discharge Problem:
Influenza, Syncope
Prescriptions:
No Action
glipizide 5 mg tablet
5 mg PO DAILY
rosuvastatin 20 mg tablet
20 mg PO QPM
tadalafil [Cialis] 5 mg tablet
5 mg PO DAILY
aspirin 81 mg Tablet,Delayed Release (Dr/Ec)
81 mg PO DAILY
docusate sodium [Colace] 100 mg Capsule
300 mg PO HSPRN PRN (Reason: CONSTIPATION)
castor oil 100 % Oil
10 ml PO DAILYPRN PRN (Reason: CONSTIPATION)
magnesium glycinate 100 mg Tablet
200 mg PO HS
Referrals:
Juan Roth DO [Family Provider]
Interventions
Interventions:
*Risk Screen - Suicide Last Done: 12/10/24 08:05
*General Assessment Last Done: 12/10/24 08:05
*Neglect/Abuse Screening Last Done: 12/10/24 08:05
*ED- Fall Risk Assessment Last Done: 12/10/24 11:16
*ED COVID-19 Vaccine History Last Done: 12/10/24 08:32
*ED Influenza Vaccine History Last Done: 12/10/24 08:32
ED- Cardiac Assessment Last Done: 12/10/24 08:33
Discharge Date and Time
Print Language: JAPANESE
[2024-12-10 08:37] LABS: Hematocrit 38.5 % (39.0-52.0); Hemoglobin 12.7 g/dL (13.0-18.0); Mean Corp Hgb Conc. 33.0 g/dL (33.0-37.0); Mean Corpuscular Volume 90.4 fL (80.0-94.0); Nucleated Red Blood Cells % 0 % (-); Platelet Count 172 10^3/uL (130-400); Red Cell Dist. Width 13.1 % (11.5-14.5)
[2024-12-10 09:00] LABS: ALT (SGPT) 14 U/L (0-50); AST (SGOT) 22 U/L (17-59); Albumin 3.8 g/dl (3.5-5.0); Alkaline Phosphatase 54 U/L (38-126); Blood Urea Nitrogen 13 mg/dl (9-20); Calcium 8.7 mg/dl (8.4-10.2); Carbon Dioxide 27 mmol/L (22-30); Chloride 103 mmol/L (98-107); Estimated Creatinine Clearance 82 ml/min; Glucose 153 mg/dl (70-99); Potassium 4.0 mmol/L (3.5-5.1); Sodium 138 mmol/L (135-145); Total Protein 6.7 g/dl (6.3-8.2); eGFR > 60.00
[2024-12-10 09:07] LABS: Troponin I 0.015 ng/ml
[2024-12-10] MEDS: NSS 1000 IV (10:16)
[2024-12-10 10:30] LABS: COVID-19 Antigen Negative (Negative)
[2024-12-10] MEDS: TAMIFLU 75 MG PO (12:13)
[2024-12-10 12:41] LABS: Troponin I 0.016 ng/ml
--- NOTE | 2024-12-10 14:34 | HPS.HSE ---
Family Physician
-
Family Physician: Juan Roth DO
Chief Complaint
-
Syncope
History of Present Illness
Juan Avery is a 83M w/ PMHx of severe s/p TAVR with bovine valve in 01/2024, T2DM, bladder CA s/p TURP, and chronic constipation who presented to the emergency department this morning after a syncopal episode. Patient woke up this morning in
his usual state of health and at 1 point in the day had a sensation of indigestion in the center of the chest. Patient states that he subsequently started develop some diaphoresis and felt like he needed to evacuate his bowels. He walked to the
bathroom and sat on the toilet, and apparently while moving his bowels had a syncopal episode in the bathroom. Patient states that he woke up on the floor and called EMS. Patient was given 4 baby aspirin en route to the hospital. Patient
states that this entire episode can be described in a word, 'weakness'.
In the emergency department, patient presented appearing fatigued, dry mucous membranes. Laboratory studies were largely unremarkable. Troponins were negative X2. EKG showed sinus bradycardia with first-degree AV block and right bundle branch
block. No change from 01/2024. CT of the cervical spine was negative. CT of the head was negative. CXR did not show any acute cardiopulmonary process. Patient did test positive for flu. He was started on oseltamivir and admitted for further
evaluation of syncope.
Medical History
Past Medical History
Past Medical History: Reports Other (severe s/p TAVR with bovine valve in 01/2024, T2DM, bladder CA s/p TURP, and chronic constipation)
Past Surgical History: Reports Cardiac, Orthopedic and Urological
Social History
Tobacco: Former Smoker
Alcohol: Occasional
Family History
Family History: Not pertinent
Allergies / Home Medications
Allergies reflects when Allergies were last updated in [facility].
Home Medications with original date entered in [facility]
Allergy/Medication List:
NKDA
ASA 81 mg daily
[place] oil 10 mL p.o. daily as needed
Docusate 300 mg p.o. as needed
Glipizide 5 mg p.o. daily
Magnesium glycinate 200 mg p.o. nightly
Rosuvastatin 20 mg p.o. every afternoon
Tadalafil 5 mg p.o. daily
Review of Systems
-
History Source: Patient
A 12 point ROS was completed and negative except as noted: Yes
Physical Exam
Vital Signs
Vital Signs
Temp Pulse Resp BP Pulse Ox
97.5 F 50 17 126/66 97
12/10/24 08:05 12/10/24 11:00 12/10/24 11:00 12/10/24 11:00 12/10/24 11:00
Physical Exam
General: No Apparent Distress, Comfortable and Conversant
HEENT: NormoCephalic and Anicteric
Respiratory: Clear and Non Labored Respirations
Cardiac: S1/S2 and Regular Rhythm
GI: Soft
Musculoskeletal: No Clubbing, No Cyanosis and No Edema
Skin: Warm
Neuro: Awake, Alert and Oriented
Psych: Calm
Laboratory Results
-
12/10/24 08:23
12/10/24 08:23
Laboratory Results
Total Bilirubin 0.8 mg/dl (0.2-1.3) 12/10/24 08:23
AST 22 U/L (17-59) 12/10/24 08:23
ALT 14 U/L (0-50) 12/10/24 08:23
Alkaline Phosphatase 54 U/L (38-126) 12/10/24 08:23
Troponin I 0.016 ng/ml 12/10/24 12:08
Data Reviewed
-
Diagnostic Radiology: Image Personally Visualized and interpreted, Report Reviewed by me and Discussed with Patient
CT Scan: Image Personally Visualized and interpreted, Report Reviewed by me and Discussed with Patient
Lab Data: Labs Reviewed by me and Discussed with Patient
Impression/Plan
-
83M w/ PMHx of severe s/p TAVR with bovine valve in 01/2024, T2DM, bladder CA s/p TURP, and chronic constipation who presented to the emergency department this morning after a syncopal episode who tested positive for flu, but had negative
laboratory and radiologic workup in the emergency departement, admitted for further evaluation of syncopal episode.
1. Syncopal Episode
- Subjective Improvement in fatigue since arrival
- Possibly in setting of fatigue secondary to influenza (see below)
- Low threshold for cardiology consult in the setting of TAVR
- S/p fluid bolus in ED, with subsequent subjective improvement in condition
- EKG without changes
- Admit to telemetry
- Orthostatic Vital Signs
2. Influenza
- Start Oseltamivir
- <24 hours since symptom onset
3. History of severe s/p TAVR
- Consider cardiology consult
- Continue ASA/Statin
4. History of T2DM
- Continue Glipizide
- Patient not hypoglycemic on arrival
- Follow daily sugars, may want to consider alternative medication
5. Hsitory of Chronic Constipation
- Bowel Regimen
CODE: DNR
Diet: Regular
DVT PPx: Lovenox
[2024-12-10] MEDS: GLUCOTROL 5 MG PO (17:15)
[2024-12-10] MEDS: LOVENOX 40 MG SC (17:15)
[2024-12-10] MEDS: CRESTOR 20 MG PO (17:15)
[2024-12-10] MEDS: MAGNESIUM OXIDE 200 MG PO (21:13)
[2024-12-11 03:41] VITALS: BP 102/61
[2024-12-11 08:00] VITALS: BP 121/58
[2024-12-11 08:05] LABS: Hematocrit 39.1 % (39.0-52.0); Hemoglobin 12.8 g/dL (13.0-18.0); Mean Corp Hgb Conc. 32.7 g/dL (33.0-37.0); Mean Corpuscular Volume 89.5 fL (80.0-94.0); Platelet Count 181 10^3/uL (130-400); Red Cell Dist. Width 13.0 % (11.5-14.5)
[2024-12-11] MEDS: ASPIR LOW (ENTERIC COATED) 81 MG PO (08:21)
[2024-12-11] MEDS: GLUCOTROL 5 MG PO (08:21)
[2024-12-11 09:03] LABS: Blood Urea Nitrogen 13 mg/dl (9-20); Calcium 8.7 mg/dl (8.4-10.2); Carbon Dioxide 30 mmol/L (22-30); Chloride 103 mmol/L (98-107); Estimated Creatinine Clearance 83 ml/min; Glucose 112 mg/dl (70-99); Potassium 4.7 mmol/L (3.5-5.1); Sodium 136 mmol/L (135-145); eGFR > 60.00
[2024-12-11 09:29] VITALS: BP 121/58; BP 123/67; BP 140/64; PULSE 56; PULSE 57; PULSE 63
--- NOTE | 2024-12-11 11:03 | W.PN.HOSP.TC ---
Today's Communication/Plan
-
Discharge home.
Assessment / Plan
Assessment / Plan
83M w/ PMHx of severe s/p TAVR with bovine valve in 01/2024, T2DM, bladder CA s/p TURP, and chronic constipation who presented to the emergency department this morning after a syncopal episode who tested positive for flu, but had negative
laboratory and radiologic workup in the emergency department, admitted for further evaluation of syncopal episode.
1. Vasovagal Episode
- Subjective Improvement in fatigue since arrival
- Feeling energetic today, no episodes of dizziness with ambulation or micturition
- Possibly in setting of fatigue secondary to influenza (see below)
- Follow up with outpatient poleyard supervisor in the setting of history of TAVR
- S/p fluid bolus in ED, with subsequent subjective improvement in condition
- EKG without changes
- Orthostatic Vital Signs negative
2. Influenza
- Continue Oseltamivir 75mg PO q12h through 12/14
- <24 hours since symptom onset
3. History of severe s/p TAVR
- Outpatient cardiology follow-up
- Continue ASA/Statin
4. History of T2DM
- Continue Glipizide
- Patient not hypoglycemic on arrival
- Follow daily sugars, may want to consider alternative medication
5. Hsitory of Chronic Constipation
- Bowel Regimen
CODE: DNR
Diet: Regular
DVT PPx: Lovenox
Anticipated Discharge: Today
Subjective/Interval History
-
Date of Service: December 11, 2024
Patient seen and examined while resting comfortably in bed.
Patient with no acute complaints today. States that he is feeling back to baseline, in fact feels very energetic.
He denies any chest pain, shortness of breath, dizziness, lower extremity swelling.
States that he has been up and walking to the bathroom without any dizziness upon standing.
Denies any dizziness when micturating, has not had a bowel movement yet today.
Endorses a mild nonproductive cough.
Objective Data
-
Labs:
Laboratory Results
12/11/24
07:43
WBC 9.2
Hgb 12.8 L
Hct 39.1
Plt Count 181
Sodium 136
Potassium 4.7
Chloride 103
Carbon Dioxide 30
BUN 13
Creatinine 0.8
Glucose 112 H
Calcium 8.7
Vital Signs:
Vital Signs
Temp Pulse Resp BP Pulse Ox
97.9 F 56 18 121/58 97
12/11/24 08:00 12/11/24 08:00 12/11/24 08:00 12/11/24 08:00 12/11/24 08:00
I&O
12/10/24 12/11/24 12/12/24
06:59 06:59 06:59
Intake Total 480 / 480
Balance 480 / 480
Review of Systems
-
History Source: Patient
All other systems: Reviewed and negative
Physical Exam
-
General: Well Developed, Well Nourished, No Apparent Distress and Conversant
HEENT: Normocephalic, Atraumatic and Moist Mucous Membranes
Respiratory: Clear to Auscultation and Non Labored Respirations; Negative Wheezes, Rales, Rhonchi or Crackles
Cardiac: Regular Rhythm and S1/S2
GI: Soft
Musculoskeletal: No Clubbing, No Cyanosis and No Edema
Skin: Warm
Neuro: Awake, Alert and Oriented
Psych: Calm
Data Reviewed
-
Labs: Labs Reviewed by me and Discussed with Patient
[2024-12-11 12:00] VITALS: BP 118/65
--- NOTE | 2024-12-11 12:02 | CM ---
Chart reviewed and spoke with Juan at bedside
IMM provided Lives with dtr and spouse in a 2 SH with 1 DARYL no DME
Independent with ADLs and ambulation
Drives
PCP Juan Roth
RX plan yes
Pharmacy [facility]
DCP DC home today with no services
Family to provide transportation
NO needs identified
[2024-12-11] MEDS: TAMIFLU 75 MG PO (13:29)
--- NOTE | 2024-12-11 16:45 | W.DCSUMMARY ---
Discharge Summary
Discharge Data
Date of Admission: 12/10/24
Date of Discharge: 12/11/24
Total time spent discharging patient (in min): 35
-
Pending Results: No
Hospital Course
Juan Reyes is a 83 year old male with a past medical history of severe aortic stenosis status post TAVR procedure with bovine valve in January 2024, type 2 diabetes mellitus, bladder cancer status post transurethral resection of the prostate, and
chronic constipation who presented to the emergency department at [facility] after a syncopal episode at home.
HISTORY OF PRESENT ILLNESS
Patient noted that on the day of arrival, he was in his usual state of health and at 1 point in the day had a sensation of indigestion in the center of his chest. He subsequently developed some diaphoresis and felt like he needed to evacuate his
bowels. He was able to walk to the bathroom and sat on the toilet and apparently while moving his bowels had a syncopal episode in the bathroom. Patient states that he woke up on the floor and that his called EMS. He was given 4 baby aspirin
en route to the hospital. Patient states that over the course of this episode, the one where he would use to describe it is 'weakness'.
ED COURSE
In the emergency department, patient presented appearing fatigued with dry mucous membranes. Laboratory studies were largely unremarkable. Troponins were negative X2. EKG showed sinus bradycardia with first-degree AV block and a right bundle
branch block which represented no change from January 2024. CT of the cervical spine was negative. CT of the head was negative. Chest x-ray did not show any acute cardiopulmonary process. Patient did however test positive for flu and was
started on oseltamivir and admitted for further evaluation of his syncope.
HOSPITAL COURSE
Within hours, and certainly by the next morning, patient was feeling back to baseline without any further syncopal episodes while hospitalized. He remained afebrile with stable vital signs. His laboratory studies were largely unremarkable.
Orthostatic vital signs were negative. It is suspected that the patient had a vasovagal episode in the setting of an acute influenza infection.
DISCHARGE INSTRUCTIONS
Follow-up with your primary care provider in less than 1 week.
Patient was started on oseltamivir 75 mg p.o. twice daily. All other home medications remain unchanged.
Patient was advised to follow-up with his gynecologist for follow-up of a syncopal episode in the setting of his history of severe aortic stenosis with TAVR procedure.
For additional details, see daily progress notes.
Discharge Plan
-
Patient Disposition: Home (Routine Discharge)
Discharge Diagnosis/Procedures: *Vasovagal Syncope
*Influenza B
History of severe aortic stenosis status post TAVR
History of type 2 diabetes mellitus
History of chronic constipation
History of bladder cancer status post TURP
Condition: Fair
Diet: Regular
Activity: As tolerated
Activity Restrictions/Additional Instructions:
Follow up with your primary care provider in less than one week.
Follow up with your gynecologist after having a syncopal episode in the setting of aortic valvular disease.
Referrals:
Juan Roth DO [Family Provider] - in less than 1 week
Fred Davenport MD [Active, Cardiology]
Referral Note: Syncopal Episode (likely vasovagal) in the Setting of History of Severe Aortic Stenosis Status Post TAVR
Prescriptions:
New
oseltamivir 75 mg Capsule
75 mg PO BID Qty: 7 0RF
Continued
glipizide 5 mg tablet
5 mg PO DAILY
rosuvastatin 20 mg tablet
20 mg PO QPM
tadalafil [Cialis] 5 mg tablet
5 mg PO DAILY
aspirin 81 mg Tablet,Delayed Release (Dr/Ec)
81 mg PO DAILY
docusate sodium [Colace] 100 mg Capsule
300 mg PO HSPRN PRN (Reason: CONSTIPATION)
castor oil 100 % Oil
10 ml PO DAILYPRN PRN (Reason: CONSTIPATION)
magnesium glycinate 100 mg Tablet
200 mg PO HS
Discharge Orders:
Discharge Patient (As Directed); Ordered 12/11/24
Ordered By: Que Anderson
Discharge Date and Time
Discharge Date/Time: 12/11/24 14:23
Print Language: BELIZEAN
== END 2024-12-11 14:23 | disposition home or self-care (01) | DRG 195 ==
LOC: 1 ACUTE 12:40
PROVIDERS: Nurse Practitioner; ADMITTING PHYSICIAN Internal Medicine; EMERGENCY PHYSICIAN Emergency Medicine; FAMILY PHYSICIAN Family Medicine
DX: J10.1 Influenza due to other identified influenza virus with other respiratory manifestations (principal); Z87.891 Personal history of nicotine dependence; Z85.51 Personal history of malignant neoplasm of bladder; Z95.2 Presence of prosthetic heart valve; Z90.79 Acquired absence of other genital organ(s); K59.09 Other constipation; Z79.82 Long term (current) use of aspirin; E11.9 Type 2 diabetes mellitus without complications; I45.10 Unspecified right bundle-branch block; Z66 Do not resuscitate; Z79.84 Long term (current) use of oral hypoglycemic drugs; Z11.52 Encounter for screening for COVID-19
CPT/HCPCS: 70450; 71046; 72125; 80048; 80053; 84484; 85025; 85027; 87502; 87811; 93005; 96360; 99285